=== PATIENT | male | born 1945 | race Two or more races ===

== ENCOUNTER 2023-02-17 15:33 | Emergency (ER) | payer MEDICARE ==
[~2023-02-17] VITALS: Ht 175.3 cm; Wt 79.4 kg
[2023-02-17 15:57] VITALS: BP 134/71; TEMP 98.1
[2023-02-17] MEDS ORDERED: TDAP [DIPH/PERTUSSIS/TET] 0.5 ML VIAL IM ONE ×2 (16:15→16:30)
--- NOTE | 2023-02-17 17:03 | NUR ---
pt seen by dr ventura. wound repair/care done using adhesive. medicated as ordered. d/c in stable condition.
== END 2023-02-17 17:07 | disposition home or self-care (01) ==
LOC: ER 15:39
DX: S01.01XA Laceration without foreign body of scalp, initial encounter (principal); Z98.890 Other specified postprocedural states; W45.8XXA Other foreign body or object entering through skin, initial encounter; Y93.89 Activity, other specified; Y92.59 Other trade areas as the place of occurrence of the external cause; Y99.8 Other external cause status
CPT/HCPCS: 90715